=== PATIENT | female | born 1965 | race Caucasian/White ===

== ENCOUNTER 2025-10-14 13:27 | Emergency (ER) | payer OTHER ==
[~2025-10-14] VITALS: Ht 175.3 cm; Wt 96.6 kg
[2025-10-14 13:32] VITALS: TEMP 97.7
--- NOTE | 2025-10-14 14:10 | ELECTROCARDIOGRAPH REPORT ---
[facility] Test Date: 2025-10-14 Test Time: 14:08:30 Pat Name: HARISH ROSE Department: [facility] Patient ID: [facility]-[id number] Room: Gender: F [employer]: : 1965 Requested By: MARISA MANUEL Order Number: [id number] Reading MD: Dr. Matthew Brooke Measurements Intervals [place] Rate: 74 P: 44 AK: 161 QRS: 29 QRSD: 95 T: 83 QT: 416 QTc: 462 Interpretive Statements Sinus rhythm Borderline T abnormalities, lateral leads Electronically Signed On 10-14-2025 18:10:[address] Matthew Brooke Please click the below link to view image of tracing.
[2025-10-14 14:24] LABS: MEAN PLATELET VOLUME 8.9 FL (7.4-10.4); RED CELL DISTRIBUTION WIDTH 13.6 % (11.5-14.5)
[2025-10-14 14:46] LABS: CREATININE 1.13 MG/DL (0.40-0.90); PRO BRAIN NATRIURETIC PEPTIDE 113 PG/ML (0-125); TOTAL CARBON DIOXIDE 30.6 MMOL/L (24-32); eCRCL 55 ML/MIN; eGFR 49 ML/MIN
[2025-10-14] MEDS ORDERED: [UNRECOGNIZED DRUG - CODE] (14:51)
--- NOTE | 2025-10-14 14:52 | RADIOLOGY REPORT ---
Indication: Shoulder Pain Technique: DI SHOULDER, COMPLETE (MIN 2 VWS)SHOULDERCM Comparison: None FINDINGS/IMPRESSION: No radiographic evidence for acute fracture or dislocation. No significant soft tissue edema. No radiopaque foreign body.
--- NOTE | 2025-10-14 14:52 | RADIOLOGY REPORT ---
CT CT HEAD Indication: FALL ON THINNERS EXAM DATE: 10/14/2025 02:17 PM COMPARISON: None TECHNIQUE: CT of the head without intravenous contrast. RADIATION DOSE: CTDIvol: 58 mGy, DLP: 1037 mGy*cm FINDINGS: There is no intracranial hemorrhage. There is no extra-axial fluid, mass, mass effect or midline shift. The ventricles are midline and normal in size. Basilar cisterns are patent. Mild periventricular and subcortical white matter chronic microvascular ischemic changes. Mild volume loss. The paranasal sinuses and mastoids are well-pneumatized. Imaged portion of the orbits are unremarkable. IMPRESSION: No intracranial hemorrhage or mass effect. Mild chronic microvascular ischemic changes.
[2025-10-14] MEDS ORDERED: CARV25TA2 PO (14:55)
[2025-10-14] MEDS ORDERED: CLOP75TA34 PO (14:55)
[2025-10-14] MEDS ORDERED: ASPI-1265 PO (14:55)
[2025-10-14] MEDS ORDERED: NITR100C PO (14:55)
[2025-10-14] MEDS ORDERED: FURO-150 PO (14:55)
[2025-10-14] MEDS ORDERED: LOSA-415 PO (14:55)
[2025-10-14] MEDS ORDERED: SEMA2PEN SUBCUT (14:55)
[2025-10-14] MEDS ORDERED: GABA-530 PO (14:55)
--- NOTE | 2025-10-14 15:07 | Physician Documentation ---
History of Present Illness ~ Chief Complaint: Mechanical Fall Stated Complaint: FALL HEAD STRIKE ON THINNERS Time Seen by MD: 13:59 Mode of Arrival: Dropped Off HPI 60 year old female reportedly fell in the shower this morning and struck her head on the toilet. She takes blood thinners for a heart issue. She is unsure if she lost consciousness. Her R shoulder hurts but she denies headache, fevers, N/V/D, cough. Tetanus within 5 Years?: No Medication Reconciliation Allergies: Coded Allergies: cephalexin (Verified Allergy, Unknown, HIVES, 10/14/25) Scheduled Aspirin (Aspirin), 1 TAB PO DAILY, (Reported) Carvedilol (Carvedilol), 1 TAB PO Q12H, (Reported) Clopidogrel Bisulfate (Clopidogrel), 1 TAB PO DAILY, (Reported) Furosemide* (Lasix*), 1 TAB PO DAILY, (Reported) Gabapentin (Gabapentin), 1 CAP PO Q8H, (Reported) Losartan Potassium* (Cozaar*), 1 TAB PO DAILY, (Reported) Nitrofurantoin Macrocrystal (Nitrofurantoin), 1 CAP PO Q12H, (Reported) Semaglutide (Ozempic), 2 MG SUBCUT Q7D, (Reported) Miscellaneous Medications Insulin Aspart-Xjhz (Nusrat), (Reported) Review of Systems All Other Systems at this time: Reviewed and Negative Physical Exam Vital Signs: RN Vital Signs have been reviewed: Yes, Temperature: 97.7, Source: Oral, Heart Rate: 72, Respiratory Rate: 16, BP: 151/78, Pulse Oximetry: 99, Weight: 96.600 Oxygen Flow Rate: 0 Physical Exam Gen: no distress HEENT: PERRL, EOMI; no external signs trauma Pulm: no distress CTAB CV: RRR no m/c/r Abd: deferred MSK: no deformity Neuro: nonfocal Skin: w/d/i Psych: unremarkable Progress Results/Orders Results/Orders Orders - MARISA MANUEL MD Ct Head (10/14/25 ) Shoulder, Complete (Min 2 Vws) (10/14/25 14:02) Monitor (10/14/25 14:02) Saline Lock (10/14/25 14:02) Oxygen (10/14/25 14:02) Hs Troponin I W Calculations (10/14/25 16:02) Hs Troponin I W Calculations (10/14/25 17:02) Urinalysis, Cult If Indicated (10/14/25 14:58) Completed Orders - MARISA MANUEL MD Ct Head (10/14/25 ) Shoulder, Complete (Min 2 Vws) (10/14/25 14:02) Cbc/Diff (10/14/25 14:02) BMP (10/14/25 14:02) PBNP (10/14/25 14:02) Electrocardiogram (10/14/25 14:02) Hs Troponin I W Calculations (10/14/25 14:02) Vital Signs 10/14/25 10/14/25 13:32 14:47 Temp 97.7 Pulse 72 Resp 16 B/P (MAP) 151/78 Pulse Ox 99 O2 Flow Rate 0 Laboratory Tests Test 10/14/25 14:15 White Blood Count 7.7 Red Blood Count 4.17 L Hemoglobin 12.7 Hematocrit 37.2 Mean Corpuscular Volume 89.3 Mean Corpuscular Hemoglobin 30.5 Mean Corpuscular Hemoglobin Concent 34.2 Red Cell Distribution Width 13.6 Platelet Count 256 Mean Platelet Volume 8.9 Neutrophils (%) (Auto) 79.2 H Lymphocytes (%) (Auto) 12.8 L Monocytes (%) (Auto) 5.4 Eosinophils (%) (Auto) 1.8 Basophils (%) (Auto) 0.8 Neutrophils # (Auto) 6.1 Lymphocytes # (Auto) 1.0 L Monocytes # (Auto) 0.4 Eosinophils # (Auto) 0.1 Basophils # (Auto) 0.1 CBC Comment Sodium Level 141 Potassium Level 4.8 Chloride Level 108 H Carbon Dioxide Level 30.6 Anion Gap 2 L Blood Urea Nitrogen 21 H Creatinine 1.13 H Estimated GFR/1.73 m2 49 BUN/Creatinine Ratio 18.6 Glucose Level 219 H Calcium Level 8.9 Troponin I High Sensitivity 7 Pro-B-Type Natriuretic Peptide 113 Albumin 3.1 L Chemistry Comments Medical Decision Making Additional information obtaine: family Findings 60 year old female as above. Exam, vitals, workup unremarkable including R shoulder xray interpreted by me which demonstrated no fracture or dislocation, normal contours. CT head interpreted by me demonstrated no mass, shift, or bleed. Labs unremarkable. Counseled, reassured, will discharge after road test with return precautions. Differential Dx:Considerations: Include: Closed head injury, Fracture(s), Cerebral contusion, Abrasion(s), Contusion(s), Foreign body(s), Hematoma(s), Laceration(s), Encephalopathy Departure Disposition: 01 HOME / SELF CARE / HOMELESS Impression: Primary Impression: Head injury Additional Impression: Shoulder sprain Condition: Stable Discharge Instructions: Fall Prevention in the Home, Adult, [id number] Referrals: NO PRIMARY CARE PROVIDER (PCP) Education Educated: Patient Educated regarding: diagnosis, treatment, prognosis, need for follow up Signature Scribe Signature: . Attestation: . MARISA MANUEL MD Oct 14, 2025 15:07
[2025-10-14 15:44] VITALS: BP 130/67; PULSE 69; RESP 16; O2SAT 98
== END 2025-10-14 15:46 | disposition home or self-care (01) ==
LOC: ER 13:28
DX: S43.401A Unspecified sprain of right shoulder joint, initial encounter (principal); S09.90XA Unspecified injury of head, initial encounter; R06.02 Shortness of breath; Z88.1 Allergy status to other antibiotic agents; Z88.8 Allergy status to other drugs, medicaments and biological substances; Z79.82 Long term (current) use of aspirin; W18.2XXA Fall in (into) shower or empty bathtub, initial encounter; Y93.E1 Activity, personal bathing and showering; Y92.89 Other specified places as the place of occurrence of the external cause; Y99.8 Other external cause status
CPT/HCPCS: 36415; 70450; 73030; 80048; 83880; 84484; 85025; 93005; 99285